=== PATIENT | male | born 1965 | race Caucasian/White ===

== ENCOUNTER 2017-08-21 15:05 | Emergency (ER) | payer OTHER ==
[~2017-08-21] VITALS: Ht 165.1 cm; Wt 65.8 kg
[~2017-08-21 15:05] MED LIST: HYDROCODONE BIT1 T11 PO; NKHM; PROTONIX40 MG PO; SUCRALFATE1 GM PO; TYLENOL500 MG PO
[2017-08-21 16:26] VITALS: BP 117/75
== END 2017-08-21 16:58 | disposition short-term general hospital (02) ==
LOC: ED 15:05
DX: S68.125A Partial traumatic metacarpophalangeal amputation of left ring finger, initial encounter (principal); S68.123A Partial traumatic metacarpophalangeal amputation of left middle finger, initial encounter; Z79.899 Other long term (current) drug therapy; Z88.5 Allergy status to narcotic agent; W45.8XXA Other foreign body or object entering through skin, initial encounter; Y93.89 Activity, other specified; Y92.89 Other specified places as the place of occurrence of the external cause; Y99.9 Unspecified external cause status

== ENCOUNTER 2019-04-25 22:04 | Emergency (ER) | payer OTHER ==
[~2019-04-25] VITALS: Ht 165.1 cm; Wt 61.2 kg
[2019-04-25 22:10] VITALS: BP 139/85
[2019-04-25] MEDS ORDERED: PREDNISONE20 M1 PO (23:15)
[2019-04-25] MEDS ORDERED: PROAIR HFA8.5 GM INH (23:15)
[2019-04-25 23:53] LABS: BASO % 0.4 % (0.0-1.0); EOS % 0.3 % (1.0-4.0); HEMATOCRIT 40.2 % (42.0-52.0); HEMOGLOBIN 14.3 g/dl (14.0-18.0); LYMPH % 25.9 % (27.0-41.0); MEAN CORPUSCULAR HGB CONC 35.6 g/dl (33.0-37.0); MEAN PLATELET VOLUME 8.4 fl (9.6-12.3); MONO # 0.9 10*3/uL (0.1-1.0); MONO % 11.5 % (3.0-9.0); NEUT # 4.7 10*3/uL (2.3-7.9); NEUT % 60.4 % (47.0-73.0); PLATELET COUNT AUTOMATED 359 10*3/uL (130-400); RED BLOOD COUNT 4.62 10*6/uL (4.50-5.90); RED CELL DISTRI WIDTH 13.1 % (0-14.5); WHITE BLOOD COUNT 7.8 10*3/uL (4.8-10.8)
[2019-04-26 00:08] LABS: ALBUMIN 3.4 gm/dl (3.1-4.5); ALKALINE PHOSPHATASE 76 U/L (45-117); BUN 6 mg/dl (7-24); CHLORIDE 96 mmol/L (98-107); CREATININE 0.83 mg/dL (0.70-1.30); POTASSIUM 3.1 mmol/L (3.5-5.1); SGOT/AST 29 IU/L (3-35); SGPT/ALT 39 U/L (12-78); SODIUM 131 mmol/L (136-145); TOTAL PROTEIN 6.8 gm/dL (6.4-8.2)
== END 2019-04-26 01:24 | disposition home or self-care (01) ==
LOC: ED 22:04
PROVIDERS: Physician Assistant
DX: R09.89 Other specified symptoms and signs involving the circulatory and respiratory systems (principal); R05 Cough; J02.9 Acute pharyngitis, unspecified; R51 Headache; R50.9 Fever, unspecified; Z79.899 Other long term (current) drug therapy; Z91.040 Latex allergy status; Z88.6 Allergy status to analgesic agent

== ENCOUNTER → 2019-04-29 | Outpatient (CLI) | payer OTHER ==
[~2019-04-29] MED LIST changes: +PREDNISONE20 M1 PO; +PROAIR HFA8.5 GM INH
[2019-04-29 11:29] LABS: BILIRUBIN NEGATIVE (NEGATIVE); BLOOD NEGATIVE (NEGATIVE); CLARITY SL CLOUDY (CLEAR); COLOR YELLOW (YELLOW); GLUCOSE NEGATIVE (NEGATIVE); KETONE NEGATIVE (NEGATIVE); LEUKO ESTERASE NEGATIVE (NEGATIVE); NITRITE NEGATIVE (NEGATIVE)
[2019-04-29 11:31] LABS: BASO % 0.2 % (0.0-1.0); EOS % 0.1 % (1.0-4.0); HEMATOCRIT 41.9 % (42.0-52.0); HEMOGLOBIN 13.8 g/dl (14.0-18.0); LYMPH # 1.5 10*3/uL (1.3-4.4); LYMPH % 15.9 % (27.0-41.0); MEAN CELL VOLUME 92.7 fl (80.0-94.0); MEAN CORPUSCULAR HGB 30.5 pg (27.0-31.0); MEAN CORPUSCULAR HGB CONC 32.9 g/dl (33.0-37.0); MEAN PLATELET VOLUME 8.6 fl (9.6-12.3); MONO # 0.5 10*3/uL (0.1-1.0); MONO % 5.3 % (3.0-9.0); NEUT # 7.1 10*3/uL (2.3-7.9); NEUT % 77.5 % (47.0-73.0); PLATELET COUNT AUTOMATED 496 10*3/uL (130-400); RED BLOOD COUNT 4.52 10*6/uL (4.50-5.90); RED CELL DISTRI WIDTH 13.6 % (0-14.5); RETICULOCYTE % 1.96 % (0.50-2.50); WHITE BLOOD COUNT 9.2 10*3/uL (4.8-10.8)
[2019-04-29 12:01] LABS: ALBUMIN 3.2 gm/dl (3.1-4.5); BUN 5 mg/dl (7-24); CHLORIDE 104 mmol/L (98-107); CHOLESTEROL 157 mg/dL (<200); CREATININE 0.81 mg/dL (0.70-1.30); GAMMA GLUTAMYL TRANSPEPTIDASE 88 U/L (15-85); HDL CHOLESTEROL 75 mg/dl (40-60); IRON 65 ug/dL (65-175); LDL CHOLESTEROL 69 mg/dL (9-159); POTASSIUM 3.2 mmol/L (3.5-5.1); SGOT/AST 29 IU/L (3-35); SGPT/ALT 50 U/L (12-78); SODIUM 140 mmol/L (136-145); TOTAL IRON BINDING CAPACITY 338 ug/dl (250-450); TOTAL PROTEIN 6.7 gm/dL (6.4-8.2); TRIGLYCERIDES 63 mg/dl (<150); URIC ACID 6.2 mg/dL (3.5-7.2); VLDL CHOLESTEROL 13 mg/dL (6-40)
[2019-04-29 12:07] LABS: VITAMIN D, 25-HYDROXY 10.7 ng/mL (30-100)
[2019-04-29 12:08] LABS: FERRITIN 74.1 ng/mL (22.0-322.0)
[2019-04-29 12:10] LABS: ALKALINE PHOSPHATASE 77 U/L (45-117); T3 UPTAKE 37 % (31-39); THYROID STIM HORMONE (HS) 0.279 uIU/ml (0.358-4.75); THYROXINE (T4) TOTAL 8.8 ug/dl (4.5-12.1)
[2019-04-29 13:10] LABS: EPITHELIAL CELLS 0-2; RBC 0-2 rbc/hpf (0-2); WBC 0-2 wbc/hpf (0-5)
[2019-04-30 11:06] LABS: RHEUMATOID ARTHRITIS FACTOR <10.0 IU/mL (0.0-13.9)
[2019-04-30 12:08] LABS: ANTI-DSDNA ANTIBODIES 096339 <1 IU/mL (0-9)
== END | disposition home or self-care (01) ==
LOC: LAB 10:10
PROVIDERS: Family Medicine
DX: R79.89 Other specified abnormal findings of blood chemistry (principal); R53.83 Other fatigue; E55.9 Vitamin D deficiency, unspecified

== ENCOUNTER 2020-04-05 08:21 | Emergency (ER) | payer OTHER ==
[~2020-04-05] VITALS: Ht 165.1 cm; Wt 70.3 kg
[2020-04-05 08:30] VITALS: BP 136/81
== END 2020-04-05 11:08 | disposition home or self-care (01) ==
LOC: ED 08:21
DX: S63.502A Unspecified sprain of left wrist, initial encounter (principal); Z88.8 Allergy status to other drugs, medicaments and biological substances; Z79.899 Other long term (current) drug therapy; W19.XXXA Unspecified fall, initial encounter; Y93.89 Activity, other specified; Y92.89 Other specified places as the place of occurrence of the external cause; Y99.8 Other external cause status

== ENCOUNTER → 2020-07-21 | Outpatient (CLI) | payer OTHER | END | disposition home or self-care (01) | LOC: RAD 09:56 | PROVIDERS: ATTEND Family Medicine | DX: M47.817 Spondylosis without myelopathy or radiculopathy, lumbosacral region (principal); M48.061 Spinal stenosis, lumbar region without neurogenic claudication; M50.31 Other cervical disc degeneration, high cervical region; M47.812 Spondylosis without myelopathy or radiculopathy, cervical region; M46.02 Spinal enthesopathy, cervical region; M47.814 Spondylosis without myelopathy or radiculopathy, thoracic region ==

== ENCOUNTER → 2020-07-31 | Outpatient (CLI) | payer OTHER | END | disposition home or self-care (01) | LOC: RAD 09:02 | PROVIDERS: ATTEND Family Medicine | DX: M25.511 Pain in right shoulder (principal); M25.521 Pain in right elbow ==

== ENCOUNTER → 2021-10-24 | Outpatient (CLI) | payer OTHER ==
[2021-10-24 09:14] LABS: HEMATOCRIT 27.1 % (42.0-52.0); MEAN CELL VOLUME 75.5 fl (80.0-94.0); MEAN CORPUSCULAR HGB 20.9 pg (27.0-31.0); MEAN CORPUSCULAR HGB CONC 27.7 g/dl (33.0-37.0); PLATELET COUNT AUTOMATED 648 10*3/uL (130-400); RED BLOOD COUNT 3.59 10*6/uL (4.50-5.90); RED CELL DISTRI WIDTH 16.9 % (0-14.5); RETICULOCYTE % 2.77 % (0.50-2.50); WHITE BLOOD COUNT 4.5 10*3/uL (4.8-10.8)
[2021-10-24 09:23] LABS: MANUAL DIFF REFLEX YES
[2021-10-24 09:32] LABS: MICROCYTOSIS MODERATE; PLATELET SUFFICIENCY HIGH (NORMAL); POLYCHROMASIA SLIGHT; TOTAL CELLS COUNTED 100 #CELLS
[2021-10-24 09:33] LABS: OVALOCYTES FEW; SCHISTOCYTES FEW
[2021-10-24 09:44] LABS: ALKALINE PHOSPHATASE 72 U/L (45-117); BUN 5 mg/dl (7-24); CHLORIDE 111 mmol/L (98-107); CHOLESTEROL 152 mg/dL (<200); CREATININE 0.85 mg/dL (0.70-1.30); GAMMA GLUTAMYL TRANSPEPTIDASE 60 U/L (15-85); IRON 11 ug/dL (65-175); LDL CHOLESTEROL 74 mg/dL (9-159); POTASSIUM 3.8 mmol/L (3.5-5.1); SGOT/AST 34 IU/L (3-35); SGPT/ALT 36 U/L (12-78); SODIUM 143 mmol/L (136-145); TOTAL IRON BINDING CAPACITY 593 ug/dl (250-450); TOTAL PROTEIN 7.4 gm/dL (6.4-8.2); TRIGLYCERIDES 70 mg/dl (<150); URIC ACID 6.7 mg/dL (3.5-7.2)
[2021-10-24 10:03] LABS: FERRITIN 2.5 ng/mL (22.0-322.0); VITAMIN D, 25-HYDROXY 15.6 ng/mL (30-100)
[2021-10-24 10:30] LABS: BILIRUBIN Negative (Negative); BLOOD Negative (Negative); CLARITY Clear (Clear); COLOR Dark Yellow (Yellow); GLUCOSE Negative (Negative); KETONE 1+ (Negative); LEUKO ESTERASE Negative (Negative); NITRITE Negative (Negative); SPECIFIC GRAVITY 1.025 (1.001-1.030)
[2021-10-24 10:52] LABS: BACTERIA TRACE; EPITHELIAL CELLS 0-2; FINE GRANULAR CAST 0-2; HYALINE CAST TNTC; MUCOUS 1+; RBC 0-2 rbc/hpf (0-2); WBC 0-2 wbc/hpf (0-5)
[2021-10-25 04:06] LABS: RHEUMATOID FACTOR <10.0 IU/mL (<14.0)
[2021-10-25 13:07] LABS: ANTI-DSDNA ANTIBODIES 1 IU/mL (0-9)
== END | disposition home or self-care (01) ==
LOC: LAB 08:47
PROVIDERS: ATTEND Family Medicine
DX: M19.012 Primary osteoarthritis, left shoulder (principal); E78.5 Hyperlipidemia, unspecified; R79.89 Other specified abnormal findings of blood chemistry; M19.011 Primary osteoarthritis, right shoulder; M47.814 Spondylosis without myelopathy or radiculopathy, thoracic region; M47.812 Spondylosis without myelopathy or radiculopathy, cervical region; M85.88 Other specified disorders of bone density and structure, other site; R53.83 Other fatigue; R74.8 Abnormal levels of other serum enzymes; E55.9 Vitamin D deficiency, unspecified; M48.04 Spinal stenosis, thoracic region; M48.02 Spinal stenosis, cervical region

== ENCOUNTER 2024-08-22 17:06 | Emergency (ER) | payer OTHER ==
[~2024-08-22] VITALS: Ht 162.5 cm; Wt 65.8 kg
[~2024-08-22 17:06] MED LIST changes: +AMITRIPTYLINE25 MG PO; +AMOX-CLAV 875-1 EACH PO; +BISACODYL10 MG R; +FIBERCON625 MG PO; +FUROSEMIDE40 MG PO; +HEALTHYLAX17 GM PO; +KLOR-CON M2020 ME1 PO; +LIDOCAINE PAIN1 EACH TD; +MELATONIN5 M1 PO; +MEROPENEM IV; +MILK OF MA2400 MG/11 PO; +NATURE'S BLEND F1 MG PO; +OXYCODONE HCL5 MG PO; +OXYCODONE5 M1 PO; +OXYCONTIN10 M1 PO; +Ondansetron4 MG PO; +PREDNISONE10 MG PO; +TYLENOL325 M2 PO; -TYLENOL500 MG PO; +VITAMIN D250 MCG PO; +VITAMIN D350 MC2 GT
[2024-08-22 17:21] VITALS: BP 132/98
[2024-08-22] MEDS ORDERED: Ondansetron Hydrochloride 4 MG/2 ML VIAL IV ONE (17:30)
[2024-08-22] MEDS ORDERED: SODIUM CHLORIDE 0.9% 1,000 ML IV ONE (17:30)
[2024-08-22] MEDS ORDERED: MORPHINE Sulfate 2 MG/ML SYR IV ONE (17:30)
[2024-08-22 18:09] LABS: BASO % 0.3 % (0.0-1.0); EOS # 0.1 10*3/uL (0.0-0.4); EOS % 0.8 % (1.0-4.0); HEMATOCRIT 45.2 % (42.0-52.0); MEAN CELL VOLUME 78.1 fl (80.0-94.0); MEAN CORPUSCULAR HGB 25.9 pg (27.0-31.0); MEAN CORPUSCULAR HGB CONC 33.2 g/dl (33.0-37.0); MEAN PLATELET VOLUME 8.4 fl (9.6-12.3); MONO # 0.9 10*3/uL (0.1-1.0); MONO % 7.4 % (3.0-9.0); NEUT # 7.3 10*3/uL (2.3-7.9); NEUT % 63.9 % (47.0-73.0); PLATELET COUNT AUTOMATED 354 10*3/uL (130-400); RED BLOOD COUNT 5.79 10*6/uL (4.50-5.90); RED CELL DISTRI WIDTH 14.6 % (0-14.5); WHITE BLOOD COUNT 11.4 10*3/uL (4.8-10.8)
[2024-08-22 18:25] LABS: ALKALINE PHOSPHATASE 123 U/L (46-116); BUN 15 mg/dl (9-23); CHLORIDE 96 mmol/L (98-107); LIPASE 41 U/L (12-53); POTASSIUM 3.6 mmol/L (3.4-5.1); SGPT/ALT 28 U/L (5-49); TOTAL PROTEIN 7.9 gm/dL (6.0-8.0)
[2024-08-22 19:37] LABS: BILIRUBIN Negative (Negative); BLOOD Negative (Negative); CLARITY Clear (Clear); COLOR Yellow (Yellow); GLUCOSE Negative (Negative); KETONE Negative (Negative); LEUKO ESTERASE Negative (Negative); NITRITE Negative (Negative); SPECIFIC GRAVITY <= 1.005 (1.001-1.030); UROBILINOGEN 0.2 E.U./dl (0.0-1.0)
[2024-08-22 20:10] LABS: BACTERIA TRACE
== END 2024-08-22 22:08 | disposition home or self-care (01) ==
LOC: ED 17:06
PROVIDERS: Emergency Medicine
DX: K80.20 Calculus of gallbladder without cholecystitis without obstruction (principal); R10.11 Right upper quadrant pain; K21.9 Gastro-esophageal reflux disease without esophagitis; Z88.5 Allergy status to narcotic agent; Z79.899 Other long term (current) drug therapy; Z98.890 Other specified postprocedural states; Z87.891 Personal history of nicotine dependence; Z93.3 Colostomy status